=== PATIENT | female | born 1955 | race Caucasian/White ===

== ENCOUNTER 2025-07-26 06:19 | Day surgery (SDC) | payer MEDICARE, OTHER, SELFPAY ==
[2025-07-26 07:30] LABS: Glucose - Point of Care 154 mg/dl (70-99)
== END 2025-07-26 09:18 | disposition home or self-care (01) ==
LOC: GI 06:19
PROVIDERS: ATTENDING PHYSICIAN Surgery
DX: Z12.11 Encounter for screening for malignant neoplasm of colon (principal); K57.30 Diverticulosis of large intestine without perforation or abscess without bleeding; D12.5 Benign neoplasm of sigmoid colon; D12.3 Benign neoplasm of transverse colon; K63.5 Polyp of colon
CPT/HCPCS: 45385; 45380; 82962; 88305